=== PATIENT | male | born 1970 | race African-American/Black ===

== ENCOUNTER → 2017-09-25 | Outpatient (CLI) | payer OTHER, BC ==
--- NOTE | 2017-09-25 13:09 | RAD ---
EXAM: PA view of the left hand, oblique and lateral views of the left small finger DATE: 09/25/2017 12:19 PM INDICATION: caught 5th finger in a hay bale twiner this morning COMPARISON: No Prior FINDINGS: No definite evidence for acute fracture or dislocation. Mild soft tissue irregularity is seen about the left small finger. Radial scaphoid degenerative changes are seen without scapholunate widening. Mild triscaphe degenerative changes are also partially profiled. IMPRESSION: 1. Soft tissue irregularity about the left small finger without definite retained radiopaque foreign body or fracture. If there is persistent clinical concern for fracture, follow-up radiographs in 10-14 days is recommended. 2. Radiocarpal and midcarpal degenerative changes as above Electronically signed by: Cain Sheehan MD (09/25/2017 1:05 PM) [facility]
== END | disposition home or self-care (01) ==
LOC: PMG 12:03
PROVIDERS: ATTEND Neuromusculoskeletal Medicine & OMM
DX: M19.042 Primary osteoarthritis, left hand (principal)
CPT/HCPCS: 73140

== ENCOUNTER 2018-11-21 16:06 | Emergency (ER) | payer BC, OTHER ==
[~2018-11-21] VITALS: Ht 185.4 cm; Wt 86.2 kg
[2018-11-21] MEDS ORDERED: HYDROcodone/APAP 5/325MG 1 TAB TABLET PO ONE (16:45)
[2018-11-21] MEDS ORDERED: DIPHTH,PERTUSS(ACELL),TET TOX 0.5 ML DISP.SYRIN. VAX IM ONE (16:45)
[2018-11-21] MEDS ORDERED: NEOMY/BACITR/POLYMYXIN OINT PACKET. TP ONE (16:45)
--- NOTE | 2018-11-21 17:34 | RAD ---
CT HEAD AND CERVICAL SPINE WO History: Head contusion. Loss of consciousness. Comparison: None. Technique: Noncontrast CT imaging was performed of the head and cervical spine. Coronal and sagittal reconstructions were performed. Exposure: One or more of the following individualized dose reduction techniques were utilized for this examination: 1. Automated exposure control 2. Adjustment of the mA and/or kV according to patient size 3. Use of iterative reconstruction technique. Findings: Head CT: No intracranial hemorrhage. No mass effect. No hydrocephalus. Extra-axial spaces are unremarkable. Right anterior scalp soft tissue swelling. Imaged orbits are unremarkable. Partially imaged opacification of the maxillary sinuses. Mastoid air cells are clear. No acute calvarial fracture. Cervical spine CT: Normal vertebral body height and alignment. No fracture. Moderate C5-C6 and C6-C7 degenerative disc disease. Mild to moderate C3-C4 degenerative disc disease. Multilevel posterior disc bulges contributing to mild canal narrowing. No high-grade canal stenosis. Multilevel neural foraminal narrowing. No high-grade neural foraminal narrowing. Focal lucency within C7 vertebral body measures 0.6 x 0.4 cm. Soft tissues unremarkable. Impression: Head CT: 1. No acute intracranial abnormality. 2. Right frontal scalp soft tissue swelling. 3. Bilateral maxillary sinus disease. Cervical spine CT: 1. No acute fracture or subluxation of the cervical spine. 2. Multilevel cervical spondylosis, as described. 3. C7 focal lucent lesion, favor hemangioma in the absence of history of malignancy. Electronically signed by: Moisés Willams DO (11/21/2018 5:31 PM) [facility]
[2018-11-21 17:50] VITALS: BP 136/76
[2018-11-21] MEDS ORDERED: HYDR-3165 PO (18:02)
--- NOTE | 2018-11-21 18:02 | PHYS DOC ---
Past History Past Medical History: No Pertinent History Past Surgical History: Appendectomy Smoking: Cigarettes Alcohol Use: Rarely Drug Use: None Adult General Chief Complaint Chief Complaint: HEAD INJURY/TRAUMA HPI HPI 48-year-old male presents with report of mechanical trip and fall while going down the stairs just prior to arrival. Patient reports striking his right forehead with subsequent abrasions and swelling and also complaining of right thumb pain. Patient thinks he may have lost consciousness for a few seconds. Reports some associated neck pain. Patient also complains of some pain to his right thigh. Denies use of blood thinners. Reports last tetanus shot greater than 5 years ago. Ice fever or chills. Denies chest pain. Denies dizziness. Patient reports he is right hand dominant. Review of Systems Review of Systems Constitutional: Denies fever or chills Eyes: Denies redness or eye pain HENT: Denies nasal congestion or sore throat Respiratory: Denies cough or shortness of breath Cardiovascular: Denies chest pain or palpitations GI: Denies abdominal pain, nausea, or vomiting : Denies dysuria or hematuria Musculoskeletal: Denies back pain or joint pain; reports neck pain Integument: Reports right forehead contusion and abrasions Neurologic: Reports headache; denies focal weakness or sensory changes Complete systems were reviewed and found to be within normal limits, except as documented in this note. Current Medications Current Medications Current Medications Medications (Trade) Dose Ordered Sig/Gabriella Start Time Stop Time Status Last Admin Dose Admin Acetaminophen/ Hydrocodone Bitart (Lortab 5/325) 1 tab 1X ONCE 11/21/18 16:45 11/21/18 16:55 DC 11/21/18 17:01 1 TAB Diphtheria/ Tetanus/Acell Pertussis (Boostrix) 0.5 ml ONCE ONCE 11/21/18 16:45 11/21/18 16:55 DC 11/21/18 17:04 0.5 ML Neomycin/ Polymyxin/ Bacitracin (Triple Antibiotic Ointment) 1 pkt 1X ONCE 11/21/18 16:45 11/21/18 16:55 DC 11/21/18 17:01 1 PKT Allergies Allergies Allergies Coded Allergies Type Severity Reaction Last Updated Verified No Known Drug Allergies 11/21/18 No Physical Exam Physical Exam Constitutional: Well developed, well nourished, no acute distress, non-toxic appearance HENT: Normocephalic, right forehead contusion and abrasions, oropharynx moist, TMs clear Eyes: PERRL, EOMI, conjunctiva normal, no discharge, no nystagmus Neck: Normal range of motion, no midline tenderness, bilateral paraspinal tenderness noted, supple Cardiovascular: Heart rate normal, regular rhythm Lungs & Thorax: Bilateral breath sounds clear to auscultation, no wheezing Abdomen: Soft, no tenderness Skin: Warm, dry, no erythema, no rash Back: No tenderness, no CVA tenderness Extremities: Pain to base of right thumb with some mild swelling, pain with flexion of thumb, CR < 2sec, sensation intact, right radial pulse +2, Tenderness to right thigh, no deformity, no bony tenderness to femur Neurologic: Alert and oriented X 3, normal motor function, normal sensory function, no focal deficits noted Psychologic: Affect normal, judgement normal Current Patient Data Vital Signs Vital Signs Date Time Temp Pulse Resp B/P (MAP) Pulse Ox O2 Delivery O2 Flow Rate FiO2 11/21/18 17:50 90 18 136/76 (96) 99 Room Air 11/21/18 16:15 98.1 EKG EKG [] Radiology/Procedures Radiology/Procedures PROCEDURE: CT HEAD AND CERVICAL SPINE WO CT HEAD AND CERVICAL SPINE WO History: Head contusion. Loss of consciousness. Comparison: None. Technique: Noncontrast CT imaging was performed of the head and cervical spine. Coronal and sagittal reconstructions were performed. Exposure: One or more of the following individualized dose reduction techniques were utilized for this examination: 1. Automated exposure control 2. Adjustment of the mA and/or kV according to patient size 3. Use of iterative reconstruction technique. Findings: Head CT: No intracranial hemorrhage. No mass effect. No hydrocephalus. Extra-axial spaces are unremarkable. Right anterior scalp soft tissue swelling. Imaged orbits are unremarkable. Partially imaged opacification of the maxillary sinuses. Mastoid air cells are clear. No acute calvarial fracture. Cervical spine CT: Normal vertebral body height and alignment. No fracture. Moderate C5-C6 and C6-C7 degenerative disc disease. Mild to moderate C3-C4 degenerative disc disease. Multilevel posterior disc bulges contributing to mild canal narrowing. No high-grade canal stenosis. Multilevel neural foraminal narrowing. No high-grade neural foraminal narrowing. Focal lucency within C7 vertebral body measures 0.6 x 0.4 cm. Soft tissues unremarkable. Impression: Head CT: 1. No acute intracranial abnormality. 2. Right frontal scalp soft tissue swelling. 3. Bilateral maxillary sinus disease. Cervical spine CT: 1. No acute fracture or subluxation of the cervical spine. 2. Multilevel cervical spondylosis, as described. 3. C7 focal lucent lesion, favor hemangioma in the absence of history of malignancy. Electronically signed by: Moisés Willams DO (11/21/2018 5:31 PM) [facility] PROCEDURE: HAND RIGHT 3V Exam: Right hand 3 views INDICATION: Pain to right thumb TECHNIQUE: Frontal, lateral and oblique views of the right hand. Comparisons: None FINDINGS: Obliquely oriented fracture through the base of the first metacarpal. There is intra-articular extension and mild displacement. Soft tissues are unremarkable. No other fractures are seen. Joint spaces are otherwise well-maintained. IMPRESSION: Obliquely oriented mildly displaced fracture through the base of the first metacarpal with likely intra-articular extension. Electronically signed by: Gillian Swanson MD (11/21/2018 5:59 PM) [facility] Course & Med Decision Making Course & Med Decision Making Pertinent Labs and Imaging studies reviewed. (See chart for details) Patient presents with report of mechanical trip and fall down some stairs with head contusion/abrasions and right thumb pain. CT head/cervical spine without acute process. Wounds cleaned and dressed. Tetanus updated. Pain addressed. Right hand x-ray with findings consistent for mildly displaced proximal first metacarpal fracture. Thumb spica splint applied. Sling provided for comfort. Patient stable for discharge with outpatient follow-up with PCP/Orthopedics. Orthopedic referral provided. Discussed findings and plan with patient and family, who acknowledge understanding and agreement. Dragon Disclaimer Dragon Disclaimer This electronic medical record was generated, in whole or in part, using a voice recognition dictation system. Splinting Splinting : Location: right thumb Hand-Made Type: orthoglass Splint: thumb spica Pre-Proc Neuro Vasc Exam: normal Post-Proc Neuro Vasc Exam: normal, unchanged from pre-exam Departure Departure: Impression: Primary Impression: Fall Additional Impressions: Head contusion Abrasion Cervical strain Metacarpal bone fracture Disposition: 01 HOME, SELF-CARE Condition: STABLE Referrals: ADRIANNA HENDRICKSON DO (PCP) TJ QUEVEDO MD Patient Instructions: Abrasion, [id number]-[id number], Cervical Strain and Sprain with Rehab-SportsMed, Facial or Scalp Contusion, Wpgs-pz-Whcy, Fall Prevention and Home Safety, Forw-gf-Bsyr, Hand Fracture, Metacarpals, Kirv-iy-Rwlm Scripts Hydrocodone Bit/Acetaminophen (NORCO 5-325 TABLET) 1 Each Tablet 0.5-1 TAB PO Q6HRS PRN for PAIN, #14 TAB Prov: KATELYN CONRAD DO 11/21/18 Problem Qualifiers Primary Impression: Fall Encounter type: initial encounter Qualified Codes: W19.XXXA - Unspecified fall, initial encounter Additional Impressions: Head contusion Encounter type: initial encounter Contusion of head detail: scalp Qualified Codes: S00.03XA - Contusion of scalp, initial encounter Cervical strain Encounter type: initial encounter Qualified Codes: S16.1XXA - Strain of muscle, fascia and tendon at neck level, initial encounter Metacarpal bone fracture Encounter type: initial encounter Metacarpal bone: first Fracture type: closed Metacarpal location: base Fracture morphology: unspecified fracture morphology Fracture alignment: nondisplaced Laterality: right Qualified Codes: S62.231A - Other displaced fracture of base of first metacarpal bone, right hand, initial encounter for closed fracture KATELYN CONRAD DO Nov 21, 2018 18:02
== END 2018-11-21 18:21 | disposition home or self-care (01) ==
LOC: ER 16:06
DX: S62.231A Other displaced fracture of base of first metacarpal bone, right hand, initial encounter for closed fracture (principal); S16.1XXA Strain of muscle, fascia and tendon at neck level, initial encounter; S00.83XA Contusion of other part of head, initial encounter; F17.210 Nicotine dependence, cigarettes, uncomplicated; W01.198A Fall on same level from slipping, tripping and stumbling with subsequent striking against other object, initial encounter; Y93.89 Activity, other specified; Y92.89 Other specified places as the place of occurrence of the external cause; Y99.8 Other external cause status
CPT/HCPCS: 29125; 70450; 72125; 73130; 90471; 90715; 99284

== ENCOUNTER 2021-05-15 03:08 | Emergency (ER) | payer BC, OTHER ==
[~2021-05-15] VITALS: Ht 185.4 cm; Wt 81.8 kg
[~2021-05-15 03:08] MED LIST: HYDR-3165 PO
--- NOTE | 2021-05-15 03:14 | PHYS DOC ---
Past History Past Medical History: No Pertinent History Past Surgical History: Appendectomy Smoking: Cigarettes Alcohol Use: Rarely Drug Use: None General Adult HPI: HPI: ".. I was [place] [employer].. 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 and I banged into my Rt. shoulder and knee... that was about 9: 45... but I am still hurting..." Patient is a 50 year old male who presents with above hx and complaints hit by another dock loader. Pt. states after he was knocked into carriage on his right side. This caused injury to right knee and his neck area. Described mechanism of injury as somewhat whiplash. Patient is able to do straight leg leg. Pain appears to be localized more and the collateral ligaments. Distal neurovascular intact. Patient's pain in his neck is localized primarily on the trapezius area on right. There is some tenderness down and between his shoulder blades in the trapezius along the chest wall and shoulder blade area. Distal neurovascular intact right arm. No other injury reported. Review of Systems: Review of Systems: Constitutional: Denies fever or chills Eyes: Denies change in visual acuity HENT: Denies nasal congestion or sore throat Respiratory: Denies cough or shortness of breath Cardiovascular: Denies chest pain or edema GI: Denies abdominal pain, nausea, vomiting, bloody stools or diarrhea : Denies dysuria Musculoskeletal: Complains of cervical, and right shoulder injury and right knee injury Integument: Denies rash Neurologic: Denies headache, focal weakness or sensory changes Endocrine: Denies polyuria or polydipsia Lymphatic: Denies swollen glands Psychiatric: Denies depression or anxiety Family History: Family History: Noncontributory to presentation Current Medications: Current Meds: See nursing for home meds Allergies: Allergies: Allergies Coded Allergies Type Severity Reaction Last Updated Verified No Known Drug Allergies 11/21/18 No Physical Exam: PE: Constitutional: moderateacute distress, non-toxic appearance. [] HENT: Normocephalic, atraumatic, bilateral external ears normal, oropharynx moist, no oral exudates, nose normal. [] Eyes: PERRLA, EOMI, conjunctiva normal, no discharge. [] Neck: Normal range of motion, Rt. Trapezius tenderness, supple, no stridor. [] Cardiovascular:Heart rate regular rhythm, no murmur [] Lungs & Thorax: Bilateral breath sounds clear to auscultation [] Abdomen: Bowel sounds normal, soft, no tenderness, no masses, no pulsatile masses. Old surgery scars. Skin: Warm, dry, no erythema, no rash. [] Back: No tenderness, no CVA tenderness. [] Extremities: Rt knee tenderness, no cyanosis, no clubbing, ROM intact but some pain in Rt. knee, no edema. [] Rt knee bilateral Collateral ligament tenderness in Rt knee. Neurologic: Alert and oriented X 3, normal motor function, normal sensory function, no focal deficits noted. [] Psychologic: Affect normal, judgement normal, mood normal. [] EKG: EKG: [] Radiology/Procedures: Radiology/Procedures: [address] [address] IMAGING REPORT Signed PATIENT: PATRICE PANDEY ACCOUNT: [id number] : 1970 LOCATION: ER AGE: 50 SEX: M EXAM STATUS: REG ER ORD. PHYSICIAN: BYRON OLIVER MD REASON: Hit on Skid dock loader at work PROCEDURE: CT CERVICAL SPINE WO CONTRAST EXAMINATION: CT CERVICAL SPINE WO CLINICAL HISTORY: Neck pain. Hit on Skid dock loader at work. TECHNIQUE: CT of the cervical spine without IV contrast. Spiral, high resolution axial images were obtained from the skull base to the cervicothoracic junction with sagittal and coronal planar reconstructions. CT Dose Reduction Employed: One or more of the following individualized dose reduction techniques were utilized for this examination: 1. Automated exposure control 2. Adjustment of the mA and/or kV according to patient size 3. Use of iterative reconstruction technique. COMPARISON: None. FINDINGS: Alignment: Normal anatomic alignment. Osseous Structures: No evidence of acute fracture or spondylolisthesis. 6 mm lytic focus in the right anterolateral C7 vertebral body, nonspecific. Degenerative Changes: Mild to moderate multilevel degenerative disc disease and neural foraminal narrowing. No evidence of high-grade osseous spinal stenosis. Cervical Soft Tissues: No prevertebral soft tissue swelling. IMPRESSION: No evidence of acute osseous abnormality involving the cervical spine. Electronically signed by: Wally Terrell DO (05/15/2021 4:42 AM) [facility] DICTATED AND SIGNED BY: WALLY TERRELL DO DATE: 05/15/21438 CC: CHANCE BAPTISTE MD; BYRON OLIVER MD ~ [[address] [address] IMAGING REPORT Signed PATIENT: PATRICE PANDEY ACCOUNT: [id number] : 1970 LOCATION: ER AGE: 50 SEX: M EXAM STATUS: REG ER ORD. PHYSICIAN: BYRON OLIVER MD REASON: Hit by another skid dock loader at work PROCEDURE: CHEST PA & LATERAL EXAMINATION: XR CHEST 2V CLINICAL HISTORY: Chest pain. Hit by another skid dock loader at work. EXAM DATE/TIME: 05/15/2021 4:15 AM COMPARISON: None FINDINGS: Lines, Tubes, and Devices: None. Cardiomediastinal Silhouette: Within normal limits. Lungs and Pleura: Lungs are well-expanded without evidence of focal airspace consolidation or pleural effusion. Pulmonary vasculature unremarkable. Bones and Soft Tissues: No acute osseous abnormality. IMPRESSION: No evidence of acute cardiopulmonary abnormality. Electronically signed by: Wally Terrell DO (05/15/2021 4:43 AM) [facility] DICTATED AND SIGNED BY: WALLY TERRELL DO DATE: 05/15/21441 CC: CHANCE BAPTISTE MD; BYRON OLIVER MD ~ ][address] [address] IMAGING REPORT Signed PATIENT: PATRICE PANDEY ACCOUNT: [id number] : 1970 LOCATION: ER AGE: 50 SEX: M EXAM STATUS: REG ER ORD. PHYSICIAN: BYRON OLIVER MD REASON: Hit by another skid dock loader at work PROCEDURE: KNEE RIGHT 4V EXAMINATION: XR KNEE 4 VIEWS WITH PATELLA_RT CLINICAL HISTORY: Right knee pain. Hit by another skid dock loader at work. TECHNIQUE: XR KNEE 4 VIEWS WITH PATELLA_RT COMPARISON: None FINDINGS/ IMPRESSION: [id number]-[id number] medial lateral compartment narrowing with tiny marginal osteophytes. No acute fracture. 1.8 cm calcified joint body in the suprapatellar recess with no significant joint effusion. Electronically signed by: Wally Terrell DO (05/15/2021 4:44 AM) [facility] DICTATED AND SIGNED BY: WALLY TERRELL DO DATE: 05/15/21 0445 CC: CHANCE BAPTISTE MD; BYRON OLIVER MD ~ Heart Score: C/O Chest Pain: N/A Risk Factors: Risk Factors: DM, Current or recent (<one month) smoker, HTN, HLP, family history of CAD, obesity. Risk Scores: Score 0 - 3: 2.5% MACE over next 6 weeks - Discharge Home Score 4 - 6: 20.3% MACE over next 6 weeks - Admit for Clinical Observation Score 7 - 10: 72.7% MACE over next 6 weeks - Early Invasive Strategies Course & Med Decision Making: Course & Med Decision Making Pertinent Labs and Imaging studies reviewed. (See chart for details) Ice packs as needed. Tylenol and Ibuprofen for pain. Follow up with work comp. May take Flexeril 10 mg up 3 x day. Return if any concerns. Impression: 1. Contusions 2. Sprain / strain Rt. Knee 3. Sprain / strain Neck [] Dragon Disclaimer: Dragon Disclaimer: This electronic medical record was generated, in whole or in part, using a voice recognition dictation system. Departure Departure: Referrals: CHANCE BAPTISTE MD (PCP) Scripts Cyclobenzaprine Hcl (CYCLOBENZAPRINE HCL) 10 Mg Tablet 10 MG PO TID PRN PRN for muscle spasms, #30 TAB Prov: BYRON OLIVER MD 05/15/21 Dragon Disclaimer This chart was dictated in whole or in part using Voice Recognition software in a busy, high-work load, and often noisy Emergency Department environment. It may contain unintended and wholly unrecognized errors or omissions. Dragon Disclaimer This chart was dictated in whole or in part using Voice Recognition software in a busy, high-work load, and often noisy Emergency Department environment. It may contain unintended and wholly unrecognized errors or omissions. BYRON OLIVER MD May 15, 2021 03:14
[2021-05-15 03:29] VITALS: BP 148/87
[2021-05-15] MEDS ORDERED: ORPHENADRINE CITRATE 60 MG/2 ML VIAL. IM ONE (04:15)
[2021-05-15] MEDS ORDERED: KETOROLAC 60 MG/2 ML VIAL. IM ONE (04:15)
[2021-05-15] MEDS ORDERED: oxyCODONE/APAP 5/325 1 TAB TABLET PO ONE (04:15)
--- NOTE | 2021-05-15 04:44 | RAD ---
EXAMINATION: CT CERVICAL SPINE WO CLINICAL HISTORY: Neck pain. Hit on Skid charge loader at work. TECHNIQUE: CT of the cervical spine without IV contrast. Spiral, high resolution axial images were ob tained from the skull base to the cervicothoracic junction with sagittal and coronal planar reconstru ctions. CT Dose Reduction Employed: One or more of the following individualized dose reduction techniques wer e utilized for this examination: 1. Automated exposure control 2. Adjustment of the mA and/or kV ac cording to patient size 3. Use of iterative reconstruction technique. COMPARISON: None. FINDINGS: Alignment: Normal anatomic alignment. Osseous Structures: No evidence of acute fracture or spondylolisthesis. 6 mm lytic focus in the right anterolateral C7 vertebral body, nonspecific. Degenerative Changes: Mild to moderate multilevel degenerative disc disease and neural foraminal narr owing. No evidence of high-grade osseous spinal stenosis. Cervical Soft Tissues: No prevertebral soft tissue swelling. IMPRESSION: No evidence of acute osseous abnormality involving the cervical spine. Electronically signed by: Wally Cochran DO (05/15/2021 4:42 AM) [facility]
--- NOTE | 2021-05-15 04:45 | RAD ---
EXAMINATION: XR CHEST 2V CLINICAL HISTORY: Chest pain. Hit by another skid bolt loader at work. EXAM DATE/TIME: 05/15/2021 4:15 AM COMPARISON: None FINDINGS: Lines, Tubes, and Devices: None. Cardiomediastinal Silhouette: Within normal limits. Lungs and Pleura: Lungs are well-expanded without evidence of focal airspace consolidation or pleural effusion. Pulmonary vasculature unremarkable. Bones and Soft Tissues: No acute osseous abnormality. IMPRESSION: No evidence of acute cardiopulmonary abnormality. Electronically signed by: Wally Cochran DO (05/15/2021 4:43 AM) [facility]
--- NOTE | 2021-05-15 04:47 | RAD ---
EXAMINATION: XR KNEE 4 VIEWS WITH PATELLA_RT CLINICAL HISTORY: Right knee pain. Hit by another skid fructose loader at work. TECHNIQUE: XR KNEE 4 VIEWS WITH PATELLA_RT COMPARISON: None FINDINGS/ IMPRESSION: [id number]-yxepljqd medial lateral compartment narrowing with tiny marginal osteophytes. No acute fractu re. 1.8 cm calcified joint body in the suprapatellar recess with no significant joint effusion. Electronically signed by: Wally Cochran DO (05/15/2021 4:44 AM) [facility]
[2021-05-15] MEDS ORDERED: CYCL10TA19 PO (04:59)
== END 2021-05-15 05:13 | disposition home or self-care (01) ==
LOC: ER 03:08
DX: S83.91XA Sprain of unspecified site of right knee, initial encounter (principal); S13.9XXA Sprain of joints and ligaments of unspecified parts of neck, initial encounter; F17.210 Nicotine dependence, cigarettes, uncomplicated; X58.XXXA Exposure to other specified factors, initial encounter; Y93.89 Activity, other specified; Y92.89 Other specified places as the place of occurrence of the external cause; Y99.8 Other external cause status
CPT/HCPCS: 71046; 72125; 73564; 96372; 99284; J1885; J2360